=== PATIENT | female | born 1965 | race Caucasian/White ===

== ENCOUNTER → 2020-05-29 11:01 | Outpatient (CLI) | payer OTHER, SELFPAY ==
--- NOTE | ~2020-05-29 | XR_ITS ---
EXAMINATION: XR foot LT min 3V EXAM DATE: 05/29/2020 11:36 INDICATION: left foot pain . Left foot pain and pop after throwing something x 1 week ago. Pain on dorsal side of left foot around 1st metatarsal area. Swelling and bruising. Hx of bunion surgery to l eft foot several years ago. TECHNIQUE: Left foot dorsoplantar, lateral and oblique projections obtained and reviewed. There is n o prior study for comparison. FINDINGS: There are surgical changes from prior 1st metatarsal osteotomy, with 2 screw ends that are protruding out of the dorsal aspect at the healed osteotomy site. There are no acute fractures ident ified. The soft tissue is unremarkable. There are no bony erosions identified. IMPRESSION: 1. Prior left 1st metatarsal osteotomy with 2 screw extends protruding dorsally about of the bone. 2. No acute findings. Reviewed, dictated and finalized at location A. FILLER IMPRESSION: 1. Prior left 1st metatarsal osteotomy with 2 screw extends protruding dorsall y about of the bone. 2. No acute findings.
== END ==
PROVIDERS: PCP Family Medicine; Visit Provider Family Medicine
DX: M79.672 Pain in left foot (principal)
CPT/HCPCS: 73630

== ENCOUNTER → 2020-07-25 10:31 | Outpatient (CLI) | payer OTHER, SELFPAY ==
--- NOTE | ~2020-07-25 | XR_ITS ---
EXAMINATION: XR foot LT min 3V DATE: 07/25/2020 10:55 INDICATION: Left foot pain TECHNIQUE: Dorsoplantar, two oblique and lateral views of the left foot were obtained. COMPARISON: None. FINDINGS: Relatively acute appearing nondisplaced mid diaphyseal fracture of the left third metatarsal. Postope rative change of prior bunionectomy and likely realignment osteotomy at the first metatarsal with fix ation pin. There is a residual lucent tract at the site of a recently removed second fixation pin. Th ere are thin sclerotic margins along a lucent tract with no evident progressive osteolysis to suggest ongoing osteomyelitis. Mild osteoarthritis at the first metatarsophalangeal and several tarsal metat arsal and interphalangeal joints. Soft tissue swelling along the dorsum of the forefoot. IMPRESSION: 1. Nondisplaced mid diaphyseal fracture of the left third metatarsal. Reviewed, dictated and finalized at location B.
== END ==
PROVIDERS: PCP Family Medicine; Visit Provider Family Medicine
DX: S92.332A Displaced fracture of third metatarsal bone, left foot, initial encounter for closed fracture (principal); L03.032 Cellulitis of left toe; L02.612 Cutaneous abscess of left foot
CPT/HCPCS: 73630